=== PATIENT | female | born 1985 | race Caucasian/White ===

== ENCOUNTER 2019-11-25 18:24 | Emergency (ER) | payer BC, OTHER ==
[~2019-11-25] VITALS: Ht 175.3 cm; Wt 102.5 kg
--- NOTE | ~2019-11-25 | EKG ---
[facility] [address] [place] [address] ELECTROCARDIOGRAM REPORT Name: RAHEL MEDRANO Room #: PRE M.R.#: [id number] Admission: Attend Phys: Discharge: Date of : 81 Report #: [id number] THIS REPORT FOR: cc: WESLEY Neal family physician/PCP Unique Calhoun MD ~ THIS REPORT FOR: //name// [facility] ED Test Date: 2019-11-25 Test Time: 18:24:00 Pat Name: RAHEL MEDRANO Department: Room: Gender: F Spray Crew: STEW : 1985 Requested By: Chaka Phan Order Number: [id number] MD: Measurements Intervals [place] Rate: 81 P: 9 HI: 183 QRS: -3 QRSD: 85 T: 13 QT: 388 QTc: 451 Interpretive Statements Sinus rhythm Baseline wander in lead(s) V1 No previous ECG available for comparison [email or web address] By: 23 23 Unique Calhoun MD /EPI
[~2019-11-25 18:24] MED LIST: OMEPRAZOLE20 M2 PO; ONDANSETRON HCL4 M2 PO; PROTONIX40 MG PO; TRAMADOL 50 MG50 MG PO; ZANTAC 150MG T150 MG PO
[2019-11-25 19:33] LABS: ABSOLUTE NEUTROPHILS 6.6 thou/uL (1.4-8.2); BASOPHILS 0.2 % (0.0-2.0); EOSINOPHILS 0.9 % (0.0-3.0); HEMATOCRIT 34.6 % (37.0-47.0); HEMOGLOBIN 11.4 gm/dL (12.0-15.0); LYMPHOCYTES 17.8 % (24.0-44.0); MCH 30.5 pg (26.0-34.0); MCHC 32.9 g/dL (28.0-37.0); MCV 92.7 fL (80.0-100.0); MONOCYTES 8.4 % (1.0-8.0); PLATELET COUNT 314 thou/uL (150-400); POLYS 72.7 % (36.0-66.0); RBC 3.73 mil/uL (4.20-5.00); RDW 12.6 % (10.5-14.5); WBC 9.1 thou/uL (4.0-11.0)
[2019-11-25 19:42] LABS: ANION GAP 10 mmol/L (7-16); BUN 14 mg/dL (7-18); CALCIUM 8.6 mg/dL (8.5-10.1); CHLORIDE 102 mmol/L (98-107); CO2 25 mmol/L (21-32); CREATININE 0.8 mg/dL (0.6-1.0); GLUCOSE 96 mg/dL (74-106); POTASSIUM 3.5 mmol/L (3.5-5.1); SODIUM 137 mmol/L (136-145)
[2019-11-25 19:53] LABS: ALBUMIN 3.9 g/dL (3.4-5.0); MAGNESIUM 1.8 mg/dL (1.8-2.4); SGOT 17 U/L (15-37); SGPT 27 U/L (30-65); TOTAL BILIRUBIN 0.2 mg/dL (<0.1-1.0); TOTAL PROTEIN 8.4 g/dL (6.4-8.2); TROPONIN-I <0.06 ng/mL (<0.06)
[2019-11-25] MEDS ORDERED: NAPROSYN500 MG PO (20:01)
[2019-11-25 20:13] VITALS: BP 128/78
[2019-11-25 21:26] LABS: AMP/METHAMP Negative (Negative); BARBITURATES Negative (Negative); BENZODIAZEPINES Negative (Negative); COCAINE Negative (Negative); METHADONE Negative (Negative); OPIATES Negative (Negative); PCP Negative (Negative)
== END 2019-11-25 20:32 | disposition home or self-care (01) ==
LOC: ER 18:24
PROVIDERS: Emergency Medicine
DX: R07.89 Other chest pain (principal); K21.9 Gastro-esophageal reflux disease without esophagitis; F41.8 Other specified anxiety disorders; Z79.899 Other long term (current) drug therapy